=== PATIENT | female | born 1990 | race Caucasian/White ===

== ENCOUNTER 2020-08-10 10:57 | Emergency (ER) | payer MEDICAID, OTHER ==
[~2020-08-10] VITALS: Ht 160 cm; Wt 63.0 kg
[~2020-08-10 10:57] MED LIST: birth control pills
[2020-08-10 11:00] VITALS: BP 117/68
== END 2020-08-10 12:31 | disposition left against medical advice (07) ==
LOC: ER 12:02
DX: R55 Syncope and collapse (principal); R00.2 Palpitations; Z53.29 Procedure and treatment not carried out because of patient's decision for other reasons
CPT/HCPCS: 93005; 99283